=== PATIENT | female | born 1990 | race Hispanic/Latino ===

== ENCOUNTER 2018-07-04 07:01 | Emergency (ER) | payer OTHER ==
[~2018-07-04 07:01] MED LIST: CLIN50GE2 TP
[2018-07-04 08:33] LABS: HCG,QUAL RESULT NEGATIVE (NEGATIVE)
[2018-07-04 08:34] LABS: APPEARANCE,URINE Clear (CLEAR); BILIRUBIN,URINE Negative (NEGATIVE); COLOR,URINE Yellow (YELLOW); GLUCOSE, URINE (UA) Negative (NEGATIVE); KETONES,URINE Negative (NEGATIVE); LEUKOCYTE ESTERASE ,URINE Moderate (NEGATIVE); NITRATE,URINE Negative (NEGATIVE); OCCULT BLOOD,URINE Nonhemolyzed Trace (NEGATIVE); PH,URINE 6.5 (5.0-8.0); PROTEIN,URINE Negative (NEGATIVE)
[2018-07-04 08:38] LABS: BACTERIA,URINE Few /HPF (None Seen); RBC,URINE 0-1 /HPF (0-1); SQUAMOUS EPITHELIAL CELL,UR Rare /HPF (0-2)
== END 2018-07-04 09:58 | disposition home or self-care (01) ==
LOC: EDH 07:01
DX: N39.0 Urinary tract infection, site not specified (principal); M54.5 Low back pain; M25.511 Pain in right shoulder; Z90.49 Acquired absence of other specified parts of digestive tract
CPT/HCPCS: 72220; 81001; 81025

== ENCOUNTER 2019-08-25 20:49 | Emergency (ER) | payer BC, OTHER ==
[2019-08-25] MEDS ORDERED: MAG HYDROX/AL HYDROX/SIMETH ES 30 ML SUSP UDCUP ONE (21:12)
[2019-08-25] MEDS ORDERED: ONDANSETRON HCL 4 MG/2 ML VIAL ONE (21:12)
[2019-08-25] MEDS ORDERED: LIDOCAINE HCL 2% VISCOUS 15 ML UDCUP ONE (21:12)
[2019-08-25] MEDS ORDERED: FAMOTIDINE/PF 20 MG/2 ML VIAL IV ONE (21:12)
[2019-08-25 21:26] LABS: BASOPHILS % (AUTO) 0.2 % (0.0-5.0); EOSINOPHILS % (AUTO) 0.4 % (0.0-8.0); HEMATOCRIT 40.2 % (36-48); LYMPHOCYTES % (AUTO) 11.2 % (21.0-51.0); MEAN CORPUSCULAR HEMOGLOBIN 29.9 pg (27.0-33.0); MEAN CORPUSCULAR HGB CONC 33.8 g/dL (32.0-36.0); MEAN CORPUSCULAR VOLUME 88.4 fL (79-99); MONOCYTES % (AUTO) 5.3 % (3.0-13.0); NEUTROPHILS % (AUTO) 82.6 % (40.0-77.0); PLATELET COUNT (AUTO) 153 K/uL (130-400); RED BLOOD CELL COUNT(AUTO) 4.55 MIL/uL (4.00-5.50); RED CELL DISTRIBUTION WIDTH 12.5 % (11.0-15.5); WHITE BLOOD COUNT (AUTO) 9.4 K/uL (4.8-10.8)
[2019-08-25 21:32] LABS: CREATININE 0.8 mg/dL (0.5-1.5); POTASSIUM 3.4 mmol/L (3.5-5.1)
[2019-08-25 21:36] LABS: ALBUMIN 3.8 g/dL (3.5-5.0); BILIRUBIN,TOTAL 0.5 mg/dL (0.2-1.0); TOTAL PROTEIN, SERUM 7.4 g/dL (6.0-8.3)
== END 2019-08-25 21:56 | disposition home or self-care (01) ==
LOC: EDH 20:49
DX: K21.9 Gastro-esophageal reflux disease without esophagitis (principal); R10.13 Epigastric pain
CPT/HCPCS: 36415; 80053; 81025; 83690; 85025; 93005; 96374; 96375; 99284; J2405; J3490